=== PATIENT | male | born 1980 | race Caucasian/White ===

== ENCOUNTER 2024-05-15 12:30 | Emergency (ER) | payer MEDICAID ==
[~2024-05-15] VITALS: Ht 177.8 cm; Wt 95.0 kg
[2024-05-15 12:31] VITALS: O2SAT 100
[2024-05-15 13:14] LABS: CHLORIDE 107 mEq/L (98-107); SODIUM 139 mEq/L (136-145)
[2024-05-15 13:15] LABS: BASOPHILS % 0.8 % (0.0-2.0); CARBON DIOXIDE 29 mEq/L (21-32); EOSINOPHILS % 2.7 % (0.0-5.0); HEMATOCRIT. 39.5 % (42.0-52.0); HEMOGLOBIN. 13.1 g/dL (14.0-18.0); LYMPHOCYTES % 27.8 % (20.0-50.0); MEAN CORPUSCULAR HEMOGLOBIN 29.7 pg (28.0-32.0); MEAN CORPUSCULAR HGB CONC 33.1 g/dL (31.0-37.0); MEAN CORPUSCULAR VOLUME 89.8 fL (80.0-94.0); MEAN PLATELET VOLUME 7.4 fl (7.4-10.4); MONOCYTES % 8.7 % (2.0-8.0); PLATELET 212 x1000/uL (130-400); RED BLOOD CELL COUNT 4.39 mill/uL (4.7-6.1); RED CELL DISTRIBUTION WIDTH 14.7 % (11.6-14.6); WHITE BLOOD COUNT 5.2 x1000/uL (4.5-11.0)
[2024-05-15 13:20] LABS: GLUCOSE 177 mg/dL (70-105); UREA NITROGEN BLOOD 9 mg/dL (9-23)
[2024-05-15 13:22] LABS: TROPONIN I HIGH SENSITIVITY 11 ng/L (3.0-53)
[2024-05-15 16:13] LABS: TROPONIN I HIGH SENSITIVITY 11 ng/L (3.0-53)
[2024-05-15 16:49] VITALS: BP 134/78; PULSE 79; RESP 18; TEMP 98.6
== END 2024-05-15 17:04 | disposition home or self-care (01) ==
LOC: EDBD 12:30 → ER 12:57
DX: B34.9 Viral infection, unspecified (principal); E11.9 Type 2 diabetes mellitus without complications; Z87.01 Personal history of pneumonia (recurrent)
CPT/HCPCS: 36415; 71045; 80048; 84484; 85025; 93005; 99285

== ENCOUNTER 2024-05-22 14:57 | Emergency (ER) | payer MEDICAID ==
[~2024-05-22] VITALS: Ht 182.9 cm; Wt 79.0 kg
[2024-05-22 15:10] VITALS: O2SAT 99
[2024-05-22] MEDS ORDERED: AMOX1TAB16 MT (16:57)
[2024-05-22] MEDS ORDERED: ACET-2708 MT (16:58)
[2024-05-22] MEDS ORDERED: IBUP-2028 MT (16:58)
[2024-05-22 17:32] VITALS: BP 120/81; PULSE 99; RESP 20; TEMP 98.4
[2024-05-22] MEDS: KETOROLAC 30MG/ML VIAL IM ONE (17:32)
[2024-05-22] MEDS: AMOXICILLIN/POTASSIUM CLAVULANATE 875/125MG TAB PO ONE (17:32)
[2024-05-22] MEDS: ACETAMINOPHEN 325MG TABLET PO ONE (17:32)
== END 2024-05-22 17:58 | disposition home or self-care (01) ==
LOC: ER 14:57
DX: K02.9 Dental caries, unspecified (principal); E11.9 Type 2 diabetes mellitus without complications; J18.9 Pneumonia, unspecified organism; Z98.890 Other specified postprocedural states
CPT/HCPCS: 99283; 96372; J1885

== ENCOUNTER 2024-10-09 16:50 | Emergency (ER) | payer MEDICAID ==
[~2024-10-09] VITALS: Ht 182.9 cm; Wt 83.9 kg
[~2024-10-09 16:50] MED LIST: ACET-2708 MT; AMOX1TAB16 MT; IBUP-2028 MT
[2024-10-09 17:12] VITALS: TEMP 98; O2SAT 98
[2024-10-09] MEDS ORDERED: CEPH500C2 MT (19:06)
[2024-10-09] MEDS ORDERED: CLOT15CR27 TP (19:06)
[2024-10-09] MEDS ORDERED: SULF1TAB48 MT (19:06)
[2024-10-09 19:30] VITALS: BP 125/77; PULSE 86; RESP 18; O2SAT 99
== END 2024-10-09 19:30 | disposition home or self-care (01) ==
LOC: ER 16:50
DX: N48.1 Balanitis (principal); L73.9 Follicular disorder, unspecified; E11.9 Type 2 diabetes mellitus without complications
CPT/HCPCS: 99283

== ENCOUNTER 2024-11-12 13:17 | Emergency (ER) | payer MEDICAID ==
[~2024-11-12] VITALS: Ht 182.9 cm; Wt 83.9 kg
[~2024-11-12 13:17] MED LIST changes: +CEPH500C2 MT; +CLOT15CR27 TP; +SULF1TAB48 MT
[2024-11-12 13:23] VITALS: O2SAT 99
[2024-11-12] MEDS: HYDROCODONE/ACETAMINOPHEN 5/325MG TABLET PO STA (15:05)
[2024-11-12] MEDS: KETOROLAC 30MG/ML VIAL IM STA (15:05)
[2024-11-12] MEDS ORDERED: NAPR-681 PO (15:54)
[2024-11-12] MEDS ORDERED: DOCU-422 MT (15:54)
[2024-11-12] MEDS ORDERED: T3 PO (15:54)
[2024-11-12 16:16] VITALS: BP 138/88; PULSE 94; RESP 18; TEMP 36.83628; O2SAT 99
== END 2024-11-12 16:17 | disposition home or self-care (01) ==
LOC: ER 13:28
DX: G89.29 Other chronic pain (principal); M54.9 Dorsalgia, unspecified; E11.9 Type 2 diabetes mellitus without complications; Z79.899 Other long term (current) drug therapy
CPT/HCPCS: 72100; 96372; 99283; J1885; Z7610

== ENCOUNTER 2024-11-24 17:16 | Emergency (ER) | payer BC, MEDICAID ==
[~2024-11-24] VITALS: Ht 177.8 cm; Wt 82.0 kg
[~2024-11-24 17:16] MED LIST changes: +DOCU-422 MT; +NAPR-681 PO; +T3 PO
[2024-11-24 17:56] VITALS: O2SAT 98
[2024-11-24 18:24] VITALS: BP 111/64; PULSE 129; RESP 20; TEMP 37.11408; O2SAT 98
== END 2024-11-24 22:35 | disposition left against medical advice (07) ==
LOC: ER 17:16
DX: R06.02 Shortness of breath (principal); R05.9 Cough, unspecified; E11.9 Type 2 diabetes mellitus without complications; Z98.890 Other specified postprocedural states; Z53.21 Procedure and treatment not carried out due to patient leaving prior to being seen by health care provider

== ENCOUNTER 2024-12-01 07:25 | Emergency (ER) | payer BC ==
[~2024-12-01] VITALS: Ht 182.9 cm; Wt 86.2 kg
[2024-12-01 07:34] VITALS: O2SAT 100
[2024-12-01 07:44] VITALS: BP 119/95; PULSE 94; RESP 18; TEMP 98.2; O2SAT 98
[2024-12-01] MEDS ORDERED: LIDOCAINE HCL 1% 20ML VIAL INFIL ONE (08:30)
[2024-12-01] MEDS ORDERED: AMOX1TAB16 MT (09:01)
[2024-12-01] MEDS ORDERED: ACET-2708 MT (09:01)
[2024-12-01] MEDS ORDERED: NAPR-681 PO (09:01)
== END 2024-12-01 09:08 | disposition home or self-care (01) ==
LOC: ER 07:31
DX: L02.413 Cutaneous abscess of right upper limb (principal); E11.9 Type 2 diabetes mellitus without complications; Z98.890 Other specified postprocedural states; Z79.899 Other long term (current) drug therapy
CPT/HCPCS: 99283; 10060; J3490

== ENCOUNTER 2025-01-18 23:38 | Emergency (ER) | payer BC ==
[~2025-01-18] VITALS: Ht 182.9 cm; Wt 84.0 kg
[2025-01-18 23:45] VITALS: O2SAT 100
[2025-01-19] MEDS ORDERED: MUPI1OIN4 TP (00:45)
[2025-01-19 01:02] VITALS: BP 117/71; PULSE 90; RESP 17; TEMP 36.7; O2SAT 100
[2025-01-19] MEDS: BACITRACIN ZINC OINT UDPKT TOP ONE (01:02)
== END 2025-01-19 01:05 | disposition home or self-care (01) ==
LOC: ER 01-19
DX: S61.200A Unspecified open wound of right index finger without damage to nail, initial encounter (principal); E11.9 Type 2 diabetes mellitus without complications; Z98.890 Other specified postprocedural states; Z79.899 Other long term (current) drug therapy; X58.XXXA Exposure to other specified factors, initial encounter; Y93.89 Activity, other specified; Y92.89 Other specified places as the place of occurrence of the external cause; Y99.8 Other external cause status
CPT/HCPCS: 99283

== ENCOUNTER 2025-01-21 21:20 | Emergency (ER) | payer BC ==
[~2025-01-21] VITALS: Ht 182.9 cm; Wt 84.0 kg
[~2025-01-21 21:20] MED LIST changes: +MUPI1OIN4 TP
[2025-01-21 21:25] VITALS: O2SAT 100
[2025-01-21 21:52] VITALS: BP 122/69; PULSE 94; RESP 16; TEMP 36.7; O2SAT 100
== END 2025-01-22 01:26 | disposition left against medical advice (07) ==
LOC: ER 21:20
DX: Z48.00 Encounter for change or removal of nonsurgical wound dressing (principal); E11.9 Type 2 diabetes mellitus without complications; Z53.21 Procedure and treatment not carried out due to patient leaving prior to being seen by health care provider

== ENCOUNTER 2025-03-18 17:55 | Emergency (ER) | payer BC, MEDICAID ==
[~2025-03-18] VITALS: Ht 182.9 cm; Wt 86.1 kg
[2025-03-18 18:00] VITALS: O2SAT 99
[2025-03-18 18:25] VITALS: BP 136/83; PULSE 86; RESP 16; TEMP 36.7; O2SAT 99
[2025-03-18] MEDS ORDERED: LIDOCAINE HCL/PF 1% 10 MG/ML 5ML VIAL INFIL ONE (19:30)
[2025-03-18] MEDS ORDERED: ACETAMINOPHEN 325MG TABLET PO ONE (19:30)
[2025-03-18] MEDS ORDERED: BACITRACIN ZINC OINT UDPKT TOP ONE (19:30)
[2025-03-18] MEDS ORDERED: ACETAMINOPHEN 325MG TABLET PO NR (21:15)
== END 2025-03-18 21:47 | disposition left against medical advice (07) ==
LOC: ER 17:55
DX: S61.011A Laceration without foreign body of right thumb without damage to nail, initial encounter (principal); E11.9 Type 2 diabetes mellitus without complications; Z98.890 Other specified postprocedural states; Z79.899 Other long term (current) drug therapy; X58.XXXA Exposure to other specified factors, initial encounter; Y93.89 Activity, other specified; Y92.89 Other specified places as the place of occurrence of the external cause; Y99.8 Other external cause status
CPT/HCPCS: 99281; J2003

== ENCOUNTER 2025-04-27 15:58 | Emergency (ER) | payer MEDICAID ==
[~2025-04-27] VITALS: Ht 180.3 cm; Wt 84.0 kg
[2025-04-27 16:17] VITALS: O2SAT 98
[2025-04-27 17:08] VITALS: BP 119/73; PULSE 85; RESP 18; TEMP 36.7; O2SAT 98
[2025-04-27] MEDS ORDERED: SULF1TAB48 MT (17:11)
[2025-04-27] MEDS ORDERED: IBUP-2030 MT (17:11)
[2025-04-27] MEDS ORDERED: CEPH500C2 MT (17:11)
== END 2025-04-27 17:31 | disposition home or self-care (01) ==
LOC: ER 15:58
DX: L03.114 Cellulitis of left upper limb (principal); E11.9 Type 2 diabetes mellitus without complications; Z96.659 Presence of unspecified artificial knee joint; Z79.899 Other long term (current) drug therapy
CPT/HCPCS: 99283

== ENCOUNTER 2025-05-03 02:56 | Emergency (ER) | payer MEDICAID ==
[~2025-05-03] VITALS: Ht 177.8 cm; Wt 86.0 kg
[~2025-05-03 02:56] MED LIST changes: +IBUP-2030 MT
[2025-05-03 03:02] VITALS: O2SAT 99
[2025-05-03 04:40] LABS: BASOPHILS % 0.5 % (0.0-2.0); EOSINOPHILS % 2.5 % (0.0-5.0); HEMATOCRIT. 36.9 % (42.0-52.0); HEMOGLOBIN. 12.7 g/dL (14.0-18.0); LYMPHOCYTES % 13.7 % (20.0-50.0); MEAN CORPUSCULAR HEMOGLOBIN 30.3 pg (28.0-32.0); MEAN CORPUSCULAR HGB CONC 34.3 g/dL (31.0-37.0); MEAN CORPUSCULAR VOLUME 88.3 fL (80.0-94.0); MEAN PLATELET VOLUME 7.3 fl (7.4-10.4); MONOCYTES % 6.5 % (2.0-8.0); NEUTROPHILS % 76.8 % (40.0-76.0); PLATELET 220 x1000/uL (130-400); RED BLOOD CELL COUNT 4.18 mill/uL (4.7-6.1); RED CELL DISTRIBUTION WIDTH 13.6 % (11.6-14.6); WHITE BLOOD COUNT 7.6 x1000/uL (4.5-11.0)
[2025-05-03] MEDS: ONDANSETRON HCL 4MG/2ML INJ IV ONE (04:40)
[2025-05-03] MEDS: NALOXONE HCL 1MG/ML 2ML VIAL IV ONE (04:40)
[2025-05-03] MEDS: SODIUM CHLORIDE 0.9% 1,000 ML IV ONE ×2 (04:47→19:48)
[2025-05-03 04:54] LABS: CHLORIDE 105 mEq/L (98-107); POTASSIUM 3.5 mEq/L (3.5-5.1); SODIUM 139 mEq/L (136-145)
[2025-05-03 04:55] LABS: CARBON DIOXIDE 28 mEq/L (21-32)
[2025-05-03 04:56] LABS: CALCIUM 9.4 mg/dL (8.7-10.4)
[2025-05-03 05:00] LABS: CREATININE 1.3 mg/dL (0.6-1.3); GLUCOSE 224 mg/dL (70-105)
[2025-05-03 05:01] LABS: ETHANOL BLOOD < 10 mg/dL (<10); UREA NITROGEN BLOOD 13 mg/dL (9-23)
[2025-05-03 05:02] LABS: CREATINE KINASE 336 IU/L (46-171)
[2025-05-03 05:19] LABS: ACETAMINOPHEN < 2 ug/mL (10-30)
[2025-05-03] MEDS ORDERED: NALO4SPR BOTHNSTRLS (06:07)
[2025-05-03] MEDS: HALOPERIDOL LACTATE 5MG/ML VIAL IM ONE (12:15)
[2025-05-03] MEDS: DIPHENHYDRAMINE 50MG/ML VIAL IM ONE (12:15)
[2025-05-03] MEDS ORDERED: LORAZEPAM 2MG/ML INJ IM ONE (12:15)
[2025-05-03] MEDS: LORAZEPAM 2MG/ML UD SYRINGE IM NR (19:47)
[2025-05-03 22:08] VITALS: PULSE 83; RESP 17; TEMP 36.6
[2025-05-04 11:12] LABS: BASOPHILS % 0.5 % (0.0-2.0); EOSINOPHILS % 2.8 % (0.0-5.0); HEMATOCRIT. 38.6 % (42.0-52.0); HEMOGLOBIN. 12.5 g/dL (14.0-18.0); LYMPHOCYTES % 22.7 % (20.0-50.0); MEAN CORPUSCULAR HEMOGLOBIN 29.5 pg (28.0-32.0); MEAN CORPUSCULAR HGB CONC 32.3 g/dL (31.0-37.0); MEAN CORPUSCULAR VOLUME 91.4 fL (80.0-94.0); MEAN PLATELET VOLUME 7.9 fl (7.4-10.4); MONOCYTES % 6.7 % (2.0-8.0); NEUTROPHILS % 67.3 % (40.0-76.0); PLATELET 139 x1000/uL (130-400); RED BLOOD CELL COUNT 4.22 mill/uL (4.7-6.1); RED CELL DISTRIBUTION WIDTH 14.2 % (11.6-14.6)
[2025-05-04 11:51] LABS: CLARITY URINE CLEAR (CLEAR); COLOR URINE YELLOW (YELLOW); GLUCOSE URINE 3+ (NEGATIVE); KETONES URINE NEGATIVE (NEGATIVE); LEUKOCYTE ESTERASE URINE NEGATIVE (NEGATIVE); NITRITE URINE NEGATIVE (NEGATIVE); OCCULT BLOOD URINE NEGATIVE (NEGATIVE); PH URINE 6.5 (4.5-8.0); PROTEIN URINE NEGATIVE (NEGATIVE); SPECIFIC GRAVITY URINE 1.026 (1.005-1.030)
[2025-05-04 12:16] LABS: SQUAMOUS EPITHELIAL CELL URINE NONE SEEN /lpf (RARE/1+)
[2025-05-04 12:17] LABS: *AMPHETAMINES SCREEN URINE PRESUMPTIVE POSITIVE (NEGATIVE); *BARBITURATES SCREEN URINE NEGATIVE (NEGATIVE); *BENZODIAZEPINES SCREEN URINE NEGATIVE (NEGATIVE); *COCAINE SCREEN URINE NEGATIVE (NEGATIVE); CALCIUM OXALATE CRYSTALS URINE 1+ /lpf; CANNABINOID URINE SCREEN NEGATIVE (NEGATIVE); ECSTASY MDMA SCREEN URINE CONF.TEST INDICATED (NEGATIVE); METHADONE URINE SCREEN NEGATIVE (NEGATIVE); OPIATES URINE SCREEN NEGATIVE (NEGATIVE); PHENCYCLIDINE URINE SCREEN NEGATIVE (NEGATIVE)
[2025-05-04 12:18] LABS: BACTERIA URINE TRACE; RBC URINE NONE SEEN /hpf (0-2); WBC URINE 0-2 /hpf (0-2)
[2025-05-04 12:19] LABS: MUCUS URINE 1+ /lpf (NONE/TRACE)
[2025-05-04 13:36] LABS: CARBON DIOXIDE 28 mEq/L (21-32); CHLORIDE 106 mEq/L (98-107); POTASSIUM 3.9 mEq/L (3.5-5.1); SODIUM 141 mEq/L (136-145)
[2025-05-04 13:37] LABS: CALCIUM 9.2 mg/dL (8.7-10.4)
[2025-05-04 13:42] LABS: CREATININE 1.2 mg/dL (0.6-1.3); GLUCOSE 223 mg/dL (70-105); UREA NITROGEN BLOOD 12 mg/dL (9-23)
[2025-05-04] MEDS: LORAZEPAM 2MG/ML UD SYRINGE IM SCH (16:21)
[2025-05-04 22:58] VITALS: BP 110/70; PULSE 69; RESP 18; TEMP 36.6; O2SAT 100
== END 2025-05-04 23:20 ==
LOC: MERGE 02:56 → ER 02:56
DX: T65.91XA Toxic effect of unspecified substance, accidental (unintentional), initial encounter (principal); R51.9 Headache, unspecified; F11.90 Opioid use, unspecified, uncomplicated; E11.9 Type 2 diabetes mellitus without complications; F31.9 Bipolar disorder, unspecified; Z79.899 Other long term (current) drug therapy; Z91.148 Patient's other noncompliance with medication regimen for other reason; Z20.822 Contact with and (suspected) exposure to COVID-19; Y92.89 Other specified places as the place of occurrence of the external cause
CPT/HCPCS: 80048 ×2; 80307; 80329; 80320; 82550; 85025 ×2; 36415 ×2; 70450; 72125; 96361; 96372 ×2; 96374; 96375; 99285; 80305; 81003; 82962; 87426; J1200; J1630; J2060 ×2; J2310; J2405; J7030; Z7610 ×4; G0480